=== PATIENT | female | born 1990 | race Caucasian/White ===

== ENCOUNTER 2023-02-28 14:25 | Inpatient (IN) ==
--- NOTE | 2023-02-28 15:20 | XRay Report ---
XR chest 1V not portable CLINICAL HISTORY: Chest pain, nonspecific. Shortness of breath. COMPARISON STUDY: No previous studies for comparison. FINDINGS: Lung volumes are normal. Lungs are clear. There is no pneumothorax or pleural effusion. Car diac size is normal. Mediastinal contours are normal. There is no evidence for pulmonary edema. IMPRESSION: No acute cardiopulmonary findings. ACT 112: Negative or not required by law. Electronically signed by: Anibal Underwood M.D. 02/28/2023 3:19 PM
--- NOTE | 2023-02-28 15:28 | CT Scan Report ---
CT OF THE HEAD WITHOUT CONTRAST CLINICAL HISTORY: Headache. Dizziness. COMPARISON STUDY: No previous studies for comparison. CT DOSE: 625.8 mGy.cm TECHNIQUE: Helical axial images of the head were obtained without IV contrast. Automated exposure con trol was utilized for the study. A dose lowering technique was utilized adhering to the principles o f ALARA. FINDINGS: No acute intracranial hemorrhage, midline shift or mass effect is present. The ventricular system is unremarkable. The basal cisterns are patent. No extra-axial collections are present. There are no findings to suggest acute dural sinus thrombosis or acute territorial infarct. No significant calvarial abnormalities are present. Visualized portions of the sinuses and mastoid air cells are annetta ar. IMPRESSION: No acute intracranial findings. ACT 112: Negative or not required by law. Electronically signed by: Anibal Underwood M.D. 02/28/2023 3:27 PM
[2023-02-28 16:14] LABS: Basophils # (auto) 0.01 K/uL (0.00-0.20); Basophils % (auto) 0.1 %; Hematocrit (blood only) 40.8 % (37.0-47.0); Hemoglobin 14.9 g/dl (12.0-16.0); Immature Granulocytes # (auto) 0.02 K/uL (0.01-0.20); Immature Granulocytes % (auto) 0.2 %; Lymphocytes # (auto) 1.64 K/uL (1.20-3.40); Lymphocytes % (auto) 17.6 %; Mean Corpuscular Hemoglobin 32.3 pg (25.0-34.0); Mean Corpuscular Hgb Conc 36.5 g/dL (32.0-36.0); Mean Corpuscular Volume 88.5 fL (80.0-100.0); Mean Platelet Volume 10.3 fL (9.4-12.4); Monocytes # (auto) 0.59 K/uL (0.11-0.59); Monocytes % (auto) 6.3 %; Neutrophils # (auto) 7.08 K/uL (1.40-6.50); Neutrophils % (auto) 75.8 %; Platelet Count 288 K/uL (130-400); RDW Coefficient of Variation 11.7 % (11.5-14.5); RDW Standard Deviation 37.1 fL (36.4-46.3); Red Blood Count 4.61 M/uL (4.20-5.40); White Blood Count 9.34 K/ul (4.8-10.8)
[2023-02-28] MEDS ORDERED: SODIUM CHLORIDE 0.9% 1,000 ML IV ONE (16:20)
[2023-02-28] MEDS ORDERED: ONDANSETRON INJ 2 MG/ML 2 ML VIAL IV STA (16:20)
[2023-02-28] MEDS ORDERED: dexAMETHasone**PF** 10 MG/ML VIAL IV ONE (16:20)
[2023-02-28] MEDS ORDERED: ACETAMINOPHEN 1,000 MG/100 ML VIAL IV STA (16:20)
[2023-02-28] MEDS ORDERED: diphenhydrAMINE 50 MG/ML VIAL IV STA (16:20)
[2023-02-28] MEDS ORDERED: PROCHLORPERAZINE 5 MG in SYRINGE 8 ML IV ONE (16:20)
[2023-02-28 16:32] LABS: Alanine Aminotransferase 12 U/L (7-52); Albumin Globulin Ratio 1.5 (0.9-2); Albumin Level 4.9 gm/dl (3.4-5.0); Alkaline Phosphatase 60 U/L (34-104); Anion Gap 8 (3-11); Aspartate Aminotransferase 13 U/L (13-39); Bilirubin,Total 0.6 mg/dl (0.2-1.0); Blood Urea Nitrogen 9 mg/dl (6-23); Calcium 10.3 mg/dl (8.6-10.3); Carbon Dioxide 26 mmol/L (21-32); Chloride 103 mmol/L (98-107); Creatinine Clr Calc Pharmacy 79.3 ml/min; Est GFR (African American) 111.3 ml/min; Globulin 3.2 gm/dl (2.5-4.0); Glucose 99 mg/dl (70-99(Fasting)); Potassium 3.5 mmol/L (3.5-5.1); Sodium 137 mmol/L (136-145); Total Protein 8.1 gm/dl (6.0-8.3)
[2023-02-28 16:36] LABS: Pregnancy Test, Serum Negative (Negative)
[2023-02-28 16:37] LABS: Troponin I High Sensitivity < 2.3 pg/ml (0-14)
[2023-02-28] MEDS ORDERED: PROCHLORPERAZINE 5 MG/ML 2 ML VIAL ONE (16:43)
[2023-02-28 16:44] LABS: Partial Thromboplastin Ratio 1.1; Partial Thromboplastin Time 30.5 Seconds (21.0-31.0); Prothrombin Time 11.4 Seconds (9.0-12.0)
[2023-02-28 16:46] LABS: Thyroid Stimulating Hormone 1.516 uIu/ml (0.300-4.500)
--- NOTE | 2023-02-28 16:47 | Emergency Department Note ---
Impression & Plan Stroke-like symptoms, Headache, Acute neck pain, Vertebral artery dissection, Visual disturbance ED Provider Note NAME: POLA ALONSO AGE: 32 SEX: F : 1990 ARRIVES VIA: Walk-In INFORMANT: [Patient][family] ED PROVIDER(S): [Tanner Mendoza MD] CHIEF COMPLAINT: Headache HISTORY OF PRESENT ILLNESS: The patient is a 32-year-old female who states that she began with symptoms about 4 days ago. She had some intermittent neck pain that she thought was muscular. Things progressed to some increased pain in the neck, dizziness, weakness, tunnel vision. Yesterday, she had blurry vision and could not focus. She had some tingling of her tongue. At 1 point, her right arm was numb and tingling. She began feeling nauseated. She developed some photophobia. Today, the headache was worse. She has tried Advil and Tylenol. She took a friend's Imitrex even. The patient was seen at [facility] today, she was referred to the ER. There has been no head trauma, she has not had fever. No previous history of migraine although there is a strong family history of this diagnosis. PMHx/PSHx/Social Hx: See Below PHYSICAL EXAM: GENERAL: Patient is in no acute distress. HEENT: No acute trauma, normocephalic atraumatic, mucous membranes moist, no nasal congestion. Pupils equal and reactive to light. NECK: No stridor, no adenopathy, no meningismus, trachea is midline. LUNGS: Clear to auscultation bilaterally, no wheeze, no rhonchi, breath sounds equal. HEART: Without murmurs gallops or rubs, regular rate and rhythm. ABDOMEN: Soft, nontender, no peritonitis. EXTREMITIES: No cyanosis, full range of motion of all the joints without pain or difficulty. NEUROLOGIC: Oriented x 3, no acute motor or sensory deficits, no focal weakness. No cerebellar deficits, no speech slur, excellent historian. SKIN: No jaundice, no diaphoresis. DIFFERENTIAL DIAGNOSIS: Migraine headache, aneurysm, arterial dissection, intracranial bleeding, intracranial mass, meningitis, among others. EMERGENCY DEPARTMENT PROCEDURES: MEDICAL DECISION MAKING: There is no leukocytosis or concerning anemia. There is a normal platelet count. No coagulopathy. No renal failure or significant electrolyte abnormality. No concerning liver enzyme elevation. Patient appeared to be in a euthyroid state. testing returned negative. ECG shows a normal sinus rhythm, no ischemia or dysrhythmia. Cardiac enzyme testing x1 is not consistent with acute cardiac injury. Brain CT shows no acute bleed or mass effect. CT angio of the head and neck were performed. 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 There was a 70% stenosis at this area. On my exam, there were no focal neurologic findings. The patient was resting comfortably. I did speak with our neurologist here at [facility], Dr. Carr. I spoke with the Amanda on-call neurologist. At this point, aspirin is recommended. No reason for stronger anticoagulation. The patient requires a hospital stay for MRI and further work-up. I spoke with the patient, I spoke with case management, the on-call hospitalist was consulted. Prior/Outside records/notes reviewed: None. ECG per my interpretation: Indication was dizziness and weakness. The ECG shows a normal sinus rhythm with a rate of 86. There is no ST elevation, no PVCs. The QTc is 418. Continuous Cardiac Monitoring per my interpretation: An order was placed for continuous cardiac monitoring. The monitor shows a rate of 83 with normal sinus rhythm. Imaging/x-ray results per my interpretation: Chronic Medical/Social conditions affecting care: Care/Management discussed with: Case management and the on-call hospitalist. Neurologist here at [facility], Dr. Carr. Amanda on-call stroke neurologist. Level of care consideration(s): After review of the information above and other included data: --I believe the patient requires escalation of care to admission Critical Care Note: I have personally spent 51 minutes of critical care time in the direct management of this patient. This includes bedside care, interpretation of diagnostic studies, and testing, discussion with consultants, patient, and family members, and other required patient management activities. This 51 minutes is in excess of all separately billable procedures. DISPOSITION: Admission Past Med/Surg History Medical History UTI (urinary tract infection) Surgical History (Updated 02/28/23 @ 21:25 by Izzy Horan DO) History of repair of anterior cruciate ligament of right knee Family History (Updated 11/19/23 @ 21:25 by Izzy Horan DO) Other Migraine Social History Smoking Status: Never smoker Hx Alcohol Use: No Hx Substance Use: No Preferred Language: Maori Communication Ability: Effective Sheep Herder Required: No Beliefs That Will Affect Care: None marital status: Single Current Living Situation: Family Current Living Situation Comment: lives with partner current occupational status: employed 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[employer] Feels Safe at Home: Yes Allergies Allergies Allergy/AdvReac Type Severity Reaction Status Date / Time No Known Allergies Allergy Unverified 02/28/23 19:33 Home Meds Home Medications Medication Instructions Recorded Confirmed sulfamethoxazole 800 1 tab PO BID 02/28/23 02/28/23 mg-trimethoprim 160 mg tablet sumatriptan succinate 50 mg tablet 50 mg PO ONCE 02/28/23 02/28/23 Results & Data (ED) Vital Signs Vital Signs - 24 hr 02/28/23 14:40 02/28/23 15:53 02/28/23 15:53 Temperature 36.9 C Temperature Source Temporal Artery Scan Pulse Rate 116 H Pulse Rate [Apical] 83 Respiratory Rate 16 18 Respiratory Effort / Characteristics Non-Labored Spontaneous Non-Labored Respiratory Depth Normal Normal Respiratory Pattern Regular Regular Blood Pressure 134/84 Blood Pressure [Right Arm] 117/85 Blood Pressure Mean 100 Blood Pressure Mean [Right Arm] 95 Blood Pressure Position Sitting Pulse Oximetry 97 97 97 Oxygen Delivery Method Room Air Room Air Room Air Sepsis Recent Fever Within 48 Hours No Sepsis New/Unexplained Change in Mental Status N/A Sepsis Action Taken by Nursing No Action Required 02/28/23 16:56 02/28/23 19:00 Temperature Temperature Source Pulse Rate Pulse Rate [Apical] 98 H 89 Respiratory Rate 18 19 Respiratory Effort / Characteristics Non-Labored Spontaneous Respiratory Depth Normal Respiratory Pattern Regular Blood Pressure Blood Pressure [Right Arm] 108/80 114/80 Blood Pressure Mean Blood Pressure Mean [Right Arm] 89 91 Blood Pressure Position Pulse Oximetry 97 96 Oxygen Delivery Method Room Air Sepsis Recent Fever Within 48 Hours Sepsis New/Unexplained Change in Mental Status Sepsis Action Taken by [facility] Medications Current Medication List: was personally reviewed by me Laboratory Data Attestation: I reviewed the patient's lab results. 02/28/23 15:50 02/28/23 15:50 Lab Results 02/28/23 Range/Units 15:50 WBC 9.34 (4.8-10.8) K/ul RBC 4.61 (4.20-5.40) M/uL Hgb 14.9 (12.0-16.0) g/dl Hct 40.8 (37.0-47.0) % MCV 88.5 (80.0-100.0) fL MCH 32.3 (25.0-34.0) pg MCHC 36.5 H (32.0-36.0) g/dL RDW Std Deviation 37.1 (36.4-46.3) fL RDW Coeff of Tommy 11.7 (11.5-14.5) % Plt Count 288 (130-400) K/uL MPV 10.3 (9.4-12.4) fL Immature Gran % (Auto) 0.2 % Neut % (Auto) 75.8 % Lymph % (Auto) 17.6 % [place] % (Auto) 6.3 % Eos % (Auto) 0.0 % Baso % (Auto) 0.1 % Neut # (Auto) 7.08 H (1.40-6.50) K/uL Lymph # (Auto) 1.64 (1.20-3.40) K/uL [place] # (Auto) 0.59 (0.11-0.59) K/uL Eos # (Auto) 0.00 (0.00-0.50) K/uL Baso # (Auto) 0.01 (0.00-0.20) K/uL Immature Gran # (Auto) 0.02 (0.01-0.20) K/uL PT 11.4 (9.0-12.0) Seconds INR 1.0 (0.9-1.1) APTT 30.5 (21.0-31.0) Seconds PTT Ratio 1.1 Sodium 137 (136-145) mmol/L Potassium 3.5 (3.5-5.1) mmol/L Chloride 103 (98-107) mmol/L Carbon Dioxide 26 (21-32) mmol/L Anion Gap 8 (3-11) BUN 9 (6-23) mg/dl Creatinine 0.82 (0.6-1.2) mg/dl Est Cr Clr Drug Dosing 79.3 ml/min Est GFR ( Amer) 111.3 ml/min Est GFR (Non-Af Amer) 96.0 ml/min BUN/Creatinine Ratio 11.0 (10-20) Glucose 99 (70-99(Fasting)) mg/dl Calcium 10.3 (8.6-10.3) mg/dl Magnesium 2.0 (1.7-2.4) mg/dl Total Bilirubin 0.6 (0.2-1.0) mg/dl AST 13 (13-39) U/L ALT 12 (7-52) U/L Alkaline Phosphatase 60 (34-104) U/L Troponin I High Sens < 2.3 (0-14) pg/ml Total Protein 8.1 (6.0-8.3) gm/dl Albumin 4.9 (3.4-5.0) gm/dl Globulin 3.2 (2.5-4.0) gm/dl Albumin/Globulin Ratio 1.5 (0.9-2) TSH 1.516 (0.300-4.500) uIu/ml HCG, Qual Negative (Negative) Administered Medications Discontinued Medications Aspirin (Aspirin Chew 324 Mg) 324 mg PO NOW STA Stop: 02/28/23 18:11 Last Admin: 02/28/23 18:22 Dose: 324 mg Documented By: CARRILLO Dexamethasone Sodium Phosphate (DexamethasonePf 10 Mg/Ml Vial) 10 mg IV NOW ONE Stop: 02/28/23 16:21 Last Admin: 02/28/23 16:48 Dose: 10 mg Documented By: AFUA Diphenhydramine HCl (Diphenhydramine 50 Mg/Ml Vial) 25 mg IV NOW STA Stop: 02/28/23 16:21 Last Admin: 02/28/23 16:51 Dose: 25 mg Documented By: AFUA Sodium Chloride (Nss) 1,000 mls @ 999 mls/hr IV .Q1H1M ONE Stop: 02/28/23 17:20 Last Infusion: 02/28/23 17:53 Dose: Infused Documented By: OAUriel Admin: 02/28/23 16:47 Dose: 999 mls/hr Documented By: AFUA Acetaminophen (Ofirmev) 1,000 mg in 100 mls @ 400 mls/hr IV NOW STA Stop: 02/28/23 16:34 Last Infusion: 02/28/23 17:11 Dose: Infused Documented By: Admin: 02/28/23 16:55 Dose: 400 mls/hr Documented By: AFUA Prochlorperazine 5 mg/ Syringe 9 mls @ 5 mls/min IV ONE ONE Stop: 02/28/23 16:21 Last Admin: 02/28/23 16:53 Dose: Not Given Documented By: AFUA Ioversol (Optiray 320 125ml) 118 ml IV ONCE ONE Stop: 02/28/23 17:05 Last Admin: 02/28/23 17:06 Dose: 118 ml Documented By: ALESSANDRA Ondansetron HCl (Ondansetron Inj 2 Mg/Ml 2 Ml Vial) 4 mg IV NOW STA Stop: 02/28/23 16:21 Last Admin: 02/28/23 16:48 Dose: 4 mg Documented By: AFUA Prochlorperazine (Prochlorperazine 5 Mg/Ml 2 Ml Vial) Confirm Administered Dose 10 mg .ROUTE .STK-MED ONE Stop: 02/28/23 16:44 Last Admin: 02/28/23 16:53 Dose: 5 mg Documented By: AFUA Imaging Data Radiologist's Impression: Chest X-Ray 02/28/23 14:46 XR chest 1V not portable CLINICAL HISTORY: Chest pain, nonspecific. Shortness of breath. COMPARISON STUDY: No previous studies for comparison. FINDINGS: Lung volumes are normal. Lungs are clear. There is no pneumothorax or pleural effusion. Cardiac size is normal. Mediastinal contours are normal. There is no evidence for pulmonary edema. IMPRESSION: No acute cardiopulmonary findings. ACT 112: Negative or not required by law. Electronically signed by: Anibal Underwood M.D. 02/28/2023 3:[address] 02/28/23 14:50 CT OF THE HEAD WITHOUT CONTRAST CLINICAL HISTORY: Headache. Dizziness. COMPARISON STUDY: No previous studies for comparison. CT DOSE: 625.8 mGy.cm TECHNIQUE: Helical axial images of the head were obtained without IV contrast. Automated exposure control was utilized for the study. A dose lowering technique was utilized adhering to the principles of ALARA. FINDINGS: No acute intracranial hemorrhage, midline shift or mass effect is present. The ventricular system is unremarkable. The basal cisterns are patent. No extra-axial collections are present. There are no findings to suggest acute dural sinus thrombosis or acute territorial infarct. No significant calvarial abnormalities are present. Visualized portions of the sinuses and mastoid air cells are clear. IMPRESSION: No acute intracranial findings. ACT 112: Negative or not required by law. Electronically signed by: Anibal Underwood M.D. 02/28/2023 3:27 PM Head CTA 02/28/23 16:20 CTA ANGIOGRAPHY OF THE HEAD CLINICAL HISTORY: headache, poss aneurysm COMPARISON STUDY: Head CT performed earlier today. TECHNIQUE: Helical axial images of the head were obtained following uneventful intravenous administration of 118 cc of Optiray. Sagittal and coronal reconstructions were viewed as well as maximal intensity projections on an independent 3-D workstation. Automated exposure control was utilized for the study. A dose lowering technique was utilized adhering to the principles of ALARA. FINDINGS: Luminal irregularity with severe narrowing of the distal cervical portion of the left vertebral artery at the C1 level is better depicted on the neck CTA which will be reported separately. The intracranial vessels are patent. No central vessel occlusion is identified. No intracranial aneurysm is present. Anterior circulation is intact. Major dural sinuses are patent. The ventricular system is unremarkable. Basal cisterns are patent. There are no extra-axial collections. IMPRESSION: 1. Luminal irregularity with severe narrowing of the distal left vertebral artery at the C1 level which is better depicted on the neck CTA. This is suggestive of a short segment dissection. Intracranial portion of the left vertebral artery patent. No intracranial vessel occlusion identified. 2. Unremarkable anterior circulation. No intracranial aneurysm. ACT 112: Negative or not required by law. Electronically signed by: Anibal Underwood M.D. 02/28/2023 5:43 PM Neck CTA 02/28/23 16:20 CT ANGIOGRAPHY OF THE NECK WITH CONTRAST CLINICAL HISTORY: Neck pain, off balance. COMPARISON STUDY: No previous studies for comparison. Technique: CT angiography of the carotid and vertebral arteries was obtained using Optiray and 3D reconstruction on an independent workstation. NASCET criteria was utilized. Automated exposure control was utilized for the study. A dose lowering technique was utilized adhering to the principles of ALARA. CT DOSE: 375.49 mGy.cm Findings: Visualized portions of the lung apices are unremarkable. There is no cervical lymphadenopathy. No cervical spine fracture is present. The bilateral common carotid, cervical internal carotid and external carotid arteries are patent. There is no stenosis or dissection within the carotid vessels. The left vertebral artery is dominant. There is luminal irregularity of the left vertebral artery at the C1 level which results in severe narrowing of this vessel approximately 70%. The intracranial portion of the left vertebral artery is patent. The luminal narrowing and irregularity extends for 1.3 cm. The right vertebral artery is patent. IMPRESSION: 1. Short segment luminal irregularity of the left vertebral artery at the C1 level which results in severe (70%) narrowing of this vessel. A short segment dissection is favored. Intracranial portion of the left vertebral artery patent. This finding was discussed with Dr. Mendoza at time of dictation. 2. Otherwise, unremarkable CTA of the neck. ACT 112: Negative or not required by law. Electronically signed by: Anibal Underwood M.D. 02/28/2023 5:37 PM Discharge Plan Visit Data Chief Complaint: Headache Stated Complaint: [facility] REFERRED, MIGRAINE, DOUBLE VISION ED Provider: Tanner Mendoza Discharge Problem: Stroke-like symptoms, Headache, Acute neck pain, Vertebral artery dissection, Visual disturbance Patient Disposition: Admitted As Inpatient Condition: Fair Discharge Instructions Interventions: ED Discharge Assessment Last Done: 02/28/23 21:14 Discharge Problem: Headache Qualifiers: Headache type: unspecified Headache chronicity pattern: acute headache I ntractability: intractable Qualified Code(s): R51.9 - Headache, unspecified
[2023-02-28] MEDS ORDERED: OPTIRAY 320 125ml IV ONE (17:04)
--- NOTE | 2023-02-28 17:39 | CT Scan Report ---
CT ANGIOGRAPHY OF THE NECK WITH CONTRAST CLINICAL HISTORY: Neck pain, off balance. COMPARISON STUDY: No previous studies for comparison. Technique: CT angiography of the carotid and vertebral arteries was obtained using Optiray and 3D rec onstruction on an independent workstation. NASCET criteria was utilized. Automated exposure control was utilized for the study. A dose lowering technique was utilized adhering to the principles of ALA RA. CT DOSE: 375.49 mGy.cm Findings: Visualized portions of the lung apices are unremarkable. There is no cervical lymphadenopat hy. No cervical spine fracture is present. The bilateral common carotid, cervical internal carotid an d external carotid arteries are patent. There is no stenosis or dissection within the carotid vessels . The left vertebral artery is dominant. There is luminal irregularity of the left vertebral artery a t the C1 level which results in severe narrowing of this vessel approximately 70%. The intracranial p ortion of the left vertebral artery is patent. The luminal narrowing and irregularity extends for 1.3 cm. The right vertebral artery is patent. IMPRESSION: 1. Short segment luminal irregularity of the left vertebral artery at the C1 level which results in s evere (70%) narrowing of this vessel. A short segment dissection is favored. Intracranial portion of the left vertebral artery patent. This finding was discussed with Dr. Mendoza at time of dictation. 2. Otherwise, unremarkable CTA of the neck. ACT 112: Negative or not required by law. Electronically signed by: Anibal Underwood M.D. 02/28/2023 5:37 PM
--- NOTE | 2023-02-28 17:46 | CT Scan Report ---
CTA ANGIOGRAPHY OF THE HEAD CLINICAL HISTORY: headache, poss aneurysm COMPARISON STUDY: Head CT performed earlier today. TECHNIQUE: Helical axial images of the head were obtained following uneventful intravenous administr ation of 118 cc of Optiray. Sagittal and coronal reconstructions were viewed as well as maximal inten sity projections on an independent 3-D workstation. Automated exposure control was utilized for the study. A dose lowering technique was utilized adhering to the principles of ALARA. FINDINGS: Luminal irregularity with severe narrowing of the distal cervical portion of the left verte bral artery at the C1 level is better depicted on the neck CTA which will be reported separately. The intracranial vessels are patent. No central vessel occlusion is identified. No intracranial aneurysm is present. Anterior circulation is intact. Major dural sinuses are patent. The ventricular system i s unremarkable. Basal cisterns are patent. There are no extra-axial collections. IMPRESSION: 1. Luminal irregularity with severe narrowing of the distal left vertebral artery at the C1 level whi ch is better depicted on the neck CTA. This is suggestive of a short segment dissection. Intracranial portion of the left vertebral artery patent. No intracranial vessel occlusion identified. 2. Unremarkable anterior circulation. No intracranial aneurysm. ACT 112: Negative or not required by law. Electronically signed by: Anibal Underwood M.D. 02/28/2023 5:43 PM
[2023-02-28] MEDS ORDERED: ASPIRIN CHEW 324 MG PO STA (18:10)
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
[2023-02-28] MEDS ORDERED: ATORVASTATIN 40 MG TAB PO SCH (21:15)
[2023-02-28] MEDS ORDERED: PHARMACIST DISCHARGE MED REC CONSULT PRN (21:15)
[2023-02-28] MEDS ORDERED: ATORVASTATIN 40 MG TAB PO STA (23:13)
[2023-02-28] MEDS ORDERED: GADOBUTROL 7.5ML VIAL IV ONE (23:21)
--- NOTE | 2023-03-01 02:12 | Magnetic Resonance Report ---
Exam(s): MRI HEAD W/WO Contrast IV Amt: 5.5cc gadavist EXAM: MR Head Without and With Intravenous Contrast CLINICAL HISTORY: Reason for exam: poss stroke, dissec on CT. TECHNIQUE: Magnetic resonance images of the head/brain without and with intravenous contrast in multiple planes. CONTRAST: Patient received 5.5cc gadavist of IV contrast COMPARISON: Comparison made to prior noncontrast head CT from February 28, 2023. FINDINGS: Brain: There is a small acute ischemic injury within the left cerebellum. Minimal nonspecific white matter changes. No mass. No hemorrhage. The flow voids at the base of the brain are intact. No evidence of abnormal enhancement. The dural venous sinuses are patent. 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 Ventricles: Unremarkable. No ventriculomegaly. Bones/joints: Unremarkable. No acute fracture. Sinuses: Chronic ethmoid sinusitis. No acute sinusitis. Mastoid air cells: Unremarkable as visualized. No mastoid effusion. Orbits: Unremarkable as visualized. IMPRESSION: There is a small acute ischemic injury within the left cerebellum. Communications: Verify Receipt Electronically signed by: Anny Ievy MD 03/01/23 02:11 AM
--- NOTE | 2023-03-01 02:49 | Communication Note ---
Date of Service: March 01, 2023 Notified by ED staff of brain MRI report. There is a small acute ischemic injury within the left cerebellum. AP Ischemic stroke in a young patient Add hypercoag work-up to AM labs
[2023-03-01] MEDS ORDERED: NSS + 20MEQ KCL 20 MEQ/1,000 ML BAG IV STA (03:01)
[2023-03-01] MEDS: ACETAMINOPHEN 325 MG TAB PO PRN ×2 (06:43→21:30)
[2023-03-01 07:27] LABS: Hematocrit (blood only) 38.8 % (37.0-47.0); Hemoglobin 13.8 g/dl (12.0-16.0); Mean Corpuscular Hemoglobin 32.2 pg (25.0-34.0); Mean Corpuscular Hgb Conc 35.6 g/dL (32.0-36.0); Mean Corpuscular Volume 90.7 fL (80.0-100.0); Mean Platelet Volume 10.2 fL (9.4-12.4); Platelet Count 286 K/uL (130-400); RDW Coefficient of Variation 11.4 % (11.5-14.5); RDW Standard Deviation 37.3 fL (36.4-46.3); Red Blood Count 4.28 M/uL (4.20-5.40); White Blood Count 8.13 K/ul (4.8-10.8)
[2023-03-01 07:55] LABS: Estimated Average Glucose 80 mg/dl; Hemoglobin A1C 4.4 % (4.5-5.6)
[2023-03-01 08:12] LABS: Calcium 9.5 mg/dl (8.6-10.3); Potassium 3.7 mmol/L (3.5-5.1)
[2023-03-01 08:18] LABS: BUN Creatinine Ratio 13.6 (10-20); Chol HDL Ratio 2.6 (0-5); Creatinine Clr Calc Pharmacy 98.6 ml/min; Est GFR (African American) 137.4 ml/min; Est GFR (Non-African American) 118.5 ml/min
[2023-03-01] MEDS: ASPIRIN 81 MG ECTAB PO SCH (08:59)
--- NOTE | 2023-03-01 14:49 | Hospitalist Progress Note ---
Date of Service March 01, 2023 Assessment & Plan (1) Stroke-like symptoms: Plan: Acute CVA: Left vertebral artery dissection with severe narrowing of the vessel at C1 level --MRI Brain: There is a small acute ischemic injury within the left cerebellum. --Head CTA:Luminal irregularity with severe narrowing of the distal left vertebral artery at the C1 level which is better depicted on the neck CTA. This is suggestive of a short segment dissection. Intracranial portion of the left vertebral artery patent. No intracranial vessel occlusion identified. Unremarkable anterior circulation. No intracranial aneurysm. --Neck CTA:Short segment luminal irregularity of the left vertebral artery at the C1 level which results in severe (70%) narrowing of this vessel. A short segment dissection is favored. Intracranial portion of the left vertebral artery patent. This finding was discussed with Dr. Mendoza at time of dictation. Otherwise, unremarkable CTA of the neck. --ECHO: Left ventricle wall motion is normal. Left ventricle systolic function is normal. EF 55 to 60%. Right ventricle normal in size and function. Left ventricular diastolic function is normal. No significant valvular pathology. With administration of agitated saline contrast, contrast was noted to appear in the left atrium late consistent with extracardiac shunt such as pulmonary arteriovenous malformation or hepatopulmonary syndrome -- HbA1c 4.4 -- Lipid panel within normal limits -- Normal TSH --Hypercoagulable work-up pending -- Continue aspirin, Lipitor for now Neurology consulted--pending Also consult cardiology given echo findings PT OT, speech eval requested Continue neuro checks (2) Stenosis of left vertebral artery: Plan: CT angiogram revealed distal vertebral artery with % blockage and dissection. Evaluated by telemetry stroke alert physician from [place] at the time of admission Given asymptomatic currently, no intervention was recommended Continue aspirin, statin as above (3) Vertebral artery dissection: Plan: as above (4) Visual disturbance: Plan: secondary to CVA (5) Acute neck pain: Plan: Supportive care (6) UTI (urinary tract infection): Plan: Recently treated with Bactrim (completed 7 day course per patient) (7) Headache: Plan: secondary to CVA Resolved DVT Px: SCDs/ambulation for now Code Status Full Code Admission and Anticipated Discharge Date Admission Date: February 28, 2023 Subjective Patient is seen and examined at bedside Visual changes, headache resolved Right upper extremity numbness resolved aspirin Currently offers no complaints Speech at baseline Denies any focal weakness Also denies any chest pain, dyspnea, dizziness, nausea, vomiting, abdominal pain Review of Systems Review of Systems: All systems reviewed & are unremarkable except as noted in Subjective Physical Exam Physical Exam: Physical Exam: Vitals signs as noted above General Appearance:Moderately built and nourished, no apparent distress Head: normocephalic, Atraumatic Eyes: normal inspection, EOMI Neck: supple, Trachea midline Respiratory/Chest: Normal breath sounds, CTA, No accessory muscle use Cardiovascular: S1, S2, No murmur Abdomen/GI:Soft, Non tender, Bowel sounds present Extremities/Musculoskeletal:normal inspection, no edema Neurologic/Psych:AAOX3, grossly no focal neurological deficits Skin: normal color, warm Results & Data Results & Data Vital Signs (Past 12 Hours) Vital Signs Pulse Pulse Resp BP Pulse Ox O2 Del Method 03/01/23 07:57 89 03/01/23 06:46 94 H 15 117/76 97 Room Air 03/01/23 05:00 77 17 113/76 96 Room Air 03/01/23 04:11 102 H 16 97 Room Air 03/01/23 03:33 105 H Laboratory Results Short CBC 02/28/23 03/01/23 Range/Units 15:50 06:52 WBC 9.34 8.13 (4.8-10.8) K/ul Hgb 14.9 13.8 (12.0-16.0) g/dl Hct 40.8 38.8 (37.0-47.0) % Plt Count 288 286 (130-400) K/uL BMP 02/28/23 03/01/23 15:50 06:52 Sodium 137 139 Potassium 3.5 3.7 Chloride 103 107 Carbon Dioxide 26 25 BUN 9 9 Creatinine 0.82 0.66 Glucose 99 111 H Calcium 10.3 9.5 Liver Function 02/28/23 Range/Units 15:50 Total Bilirubin 0.6 (0.2-1.0) mg/dl AST 13 (13-39) U/L ALT 12 (7-52) U/L Alkaline Phosphatase 60 (34-104) U/L Albumin 4.9 (3.4-5.0) gm/dl (7) Headache Headache chronicity pattern: acute headache Headache type: unspecified Intractability: intractable Qualified Code(s): R51.9 - Headache, unspecified
--- NOTE | 2023-03-01 16:00 | Communication Note ---
Date of Service: March 01, 2023 Will hold off cardiology consultation for now until input from neurology. Consider [facility]/cardiology consultation is recommended by neurology.
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
[2023-03-01] MEDS ORDERED: ATORVASTATIN 40 MG TAB PO SCH (21:00)
--- NOTE | 2023-03-01 22:13 | Electrocardiogram Report ---
Test Reason : Blood Pressure : / mmHG Vent. Rate : 086 BPM Atrial Rate : 086 BPM P-R Int : 142 ms QRS Dur : 074 ms QT Int : 350 ms P-R-T Axes : 064 076 038 degrees QTc Int : 418 ms Normal sinus rhythm Normal ECG No previous ECGs available Confirmed by Kj Hernandes ([id number]) on 03/01/2023 10:12:42 PM Referred By: REFERRED SELF Confirmed By:Kj Hernandes
[2023-03-02 07:31] LABS: Hematocrit (blood only) 36.8 % (37.0-47.0); Hemoglobin 13.1 g/dl (12.0-16.0); Mean Corpuscular Hemoglobin 32.5 pg (25.0-34.0); Mean Corpuscular Hgb Conc 35.6 g/dL (32.0-36.0); Mean Corpuscular Volume 91.3 fL (80.0-100.0); Mean Platelet Volume 10.1 fL (9.4-12.4); Platelet Count 234 K/uL (130-400); RDW Coefficient of Variation 11.8 % (11.5-14.5); RDW Standard Deviation 38.7 fL (36.4-46.3); Red Blood Count 4.03 M/uL (4.20-5.40); White Blood Count 6.78 K/ul (4.8-10.8)
[2023-03-02 08:38] LABS: Calcium 9.2 mg/dl (8.6-10.3); Magnesium 1.8 mg/dl (1.7-2.4); Potassium 3.6 mmol/L (3.5-5.1)
[2023-03-02] MEDS: ACETAMINOPHEN 325 MG TAB PO PRN ×2 (08:42→12:55)
[2023-03-02] MEDS: ASPIRIN 81 MG ECTAB PO SCH (08:43)
[2023-03-02 08:44] LABS: BUN Creatinine Ratio 17.3 (10-20); Creatinine Clr Calc Pharmacy 86.7 ml/min
--- NOTE | 2023-03-02 11:25 | Pharmacy Report ---
- Date of Service March 02, 2023 - Pharmacy CVA/TIA Medication Review Medications to Prevent Stroke handout has been added to the patients discharge packet. Antiplatelet(s) * Aspirin 81 mg daily Cholesterol * High intensity statin: atorvastatin 40 mg daily DVT Prophylaxis * N/A right now Therapeutic Anticoagulation * No history of Afib/Aflutter noted Type 2 Diabetes * Patient does not have T2DM
[2023-03-02] MEDS ORDERED: STROKE PATIENT DISCHARGE STA (11:54)
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
--- NOTE | 2023-03-03 11:47 | Pharmacy Report ---
Pharmacist Stroke Counseling - Date of Service March 03, 2023 - Scope: Pharmacy has been consulted to provide medication discharge counseling for this patient admitted with ischemic stroke as per the Pharmacist Discharge Counseling for Stroke Patients Protocol. - Medications on Discharge: Home Medications Medication Instructions Recorded Confirmed sulfamethoxazole 800 1 tab PO BID 02/28/23 02/28/23 mg-trimethoprim 160 mg tablet New Rx's Medication Instructions Recorded aspirin 81 mg tablet,delayed 81 mg PO QAM #60 tabs 03/02/23 release atorvastatin 40 mg tablet 40 mg PO HS #60 tabs 03/02/23 - Action: The above medications, specifically ones for stroke treatment/prophylaxis, have been reviewed in detail with the patient and/or patient transportation services representative(s) prior to discharge. This includes indication, common adverse reactions, drug interactions, and medication administration. Medication counseling has been employed using the teach-back method to ensure understanding. - Outcome: The patient and/or patient transportation services representative(s) have demonstrated understanding of the medications. Additional comments: - Patient confirmed that she was able to worm picker medications from pharmacy and has taken 1 dose of each at time of phone call - Warnings/precautions and administration instructions discussed with patient - No obvious barriers noted for proper medication compliance Thank you for allowing pharmacy to be involved in the care of this patient. Please call [phone] with any additional questions
[2023-03-05 18:57] LABS: Factor 5 Mutation NEGATIVE
== END 2023-03-02 13:32 | disposition home or self-care (01) | DRG 64 ==
LOC: ED 14:25 → EDINP 20:10 → SUATTDRO 20:10 → 2N 03-01 21:14